=== PATIENT | female | born 1995 | race Caucasian/White ===

== ENCOUNTER → 2019-05-20 15:30 | Observation (INO) ==
[2019-05-20 14:55] LABS: Bilirubin,Urine Negative (Negative); Blood,Urine Negative (Negative); Clarity,Urine Cloudy (Clear); Color,Urine Yellow (Yellow); Glucose,Urine (UA) Normal (Normal); Ketones,Urine Negative (Negative); Leukocyte Esterase,Urine Trace (Negative); Nitrite,Urine Negative (Negative); PH,Urine 6.5 pH Units (5.0-8.0); Protein,Urine Negative (Neg-Trace); Specific Gravity,Urine 1.013 (1.010-1.025); Urobilinogen,Urine Normal (Normal)
[2019-05-20 15:07] LABS: Bacteria,Urine Moderate per hpf (None-Few); Hyaline Casts,Urine None Seen per lpf (None-Few); RBC,Urine 0-3 per hpf (0-3); Squamous Epithelial Cell,Urine Many per lpf (None-Few); WBC,Urine 15-30 per hpf (0-3)
[2019-05-20 15:30] LABS: Amphetamine Screen,Urine Negative ng/mL (Cutoff=1000); Barbiturate Screen,Urine Negative ng/mL (Cutoff=200); Benzodiazepines Screen,Urine Negative ng/mL (Cutoff=200); Cannabinoid Screen,Urine Negative ng/mL (Cutoff = 50); Cocaine Screen,Urine Negative ng/mL (Cutoff= 300); Opiate Screen,Urine Negative ng/mL (Cutoff=300); Phencyclidine Screen,Urine Negative ng/mL (Cutoff=25)
== END | disposition home or self-care (01) ==
LOC: 1NENULAB
PROVIDERS: ADMIT Advanced Practice Midwife; ATTEND Advanced Practice Midwife

== ENCOUNTER 2020-08-30 08:00 | Inpatient (IN) ==
[2020-08-30] MEDS ORDERED: Naloxone 0.4 MG/ML INJ IVP PRN ×2 (08:51→11:32)
[2020-08-30] MEDS ORDERED: Azithromycin 500 MG in 0.9 % Sodium Chloride 250 ML IVPB ONE (08:51)
[2020-08-30] MEDS ORDERED: Famotidine 20 MG/2 ML VIAL IVP PRN (08:51)
[2020-08-30] MEDS ORDERED: Metoclopramide 10 MG/2 ML VIAL IVP PRN ×2 (08:51→15:08)
[2020-08-30] MEDS ORDERED: Ondansetron 4 MG/2 ML VIAL IVP PRN ×2 (08:51→15:08)
[2020-08-30] MEDS ORDERED: CeFAZolin Syr 3,000MG/30 ML 3,000 MG/30 ML SYRINGE IVPB ONE (08:53)
[2020-08-30] MEDS ORDERED: Ringers Solution, Lactated 1,000 ML IVC SCH (09:00)
[2020-08-30 09:18] LABS: Basophils % 0.1 %; Eosinophils # 0.1 K/mcL (0.0-0.6); Eosinophils % 1.6 %; Hematocrit 33.1 % (35.3-44.9); Hemoglobin 10.5 g/dL (11.5-15.4); Immature Granulocytes % 0.9 % (0-4); Lymphocytes # 2.1 K/mcL (0.6-4.6); Mean Corpuscular HGB Conc 31.7 g/dL (31.6-35.5); Mean Corpuscular Hemoglobin 25.5 pg (28.0-33.3); Mean Corpuscular Volume 80.3 fL (83.0-100.0); Monocytes # 0.6 K/mcL (0.0-1.3); Monocytes % 6.4 %; Neutrophils # 6.1 K/mcL (1.6-8.9); Platelet Count 265 K/mcL (140-400); Red Blood Count 4.12 M/mcL (3.82-4.97); Red Cell Distribution Width 14.1 % (11.5-14.5)
[2020-08-30 09:27] LABS: Amphetamine Screen,Urine Negative ng/mL (Cutoff=1000); Barbiturate Screen,Urine Negative ng/mL (Cutoff=200); Benzodiazepines Screen,Urine Negative ng/mL (Cutoff=200); Cannabinoid Screen,Urine Negative ng/mL (Cutoff = 50); Cocaine Screen,Urine Negative ng/mL (Cutoff= 300); Opiate Screen,Urine Negative ng/mL (Cutoff=300); Phencyclidine Screen,Urine Negative ng/mL (Cutoff=25)
[2020-08-30] MEDS ORDERED: *HR* FentaNYL (PF) 100 MCG/2 ML VIAL ONE (10:24)
[2020-08-30] MEDS ORDERED: *HR* Morphine Sulfate/PF 10 MG/10 ML AMPUL ONE (10:24)
[2020-08-30] MEDS ORDERED: Ondansetron 4 MG/2 ML VIAL ONE (10:32)
[2020-08-30] MEDS ORDERED: Acetaminophen IV 1,000 MG/100 ML BAG IVPB ONE (10:35)
[2020-08-30] MEDS ORDERED: Ringers Solution, Lactated 1,000 ML ONE (11:03)
[2020-08-30] MEDS ORDERED: *HR* Meperidine 25 MG/ML SYRINGE IVP PRN (11:32)
[2020-08-30] MEDS ORDERED: *HR* FentaNYL (PF) 100 MCG/2 ML VIAL IVP PRN (11:32)
[2020-08-30] MEDS ORDERED: Ketorolac 30 MG/ML VIAL ONE (12:17)
[2020-08-30] MEDS ORDERED: Sennosides 8.6 MG TABLET PO PRN (15:08)
[2020-08-30] MEDS ORDERED: Oxytocin 20 units/ LR 1000 mL 20 UNIT/1,000 ML BAG IVC SCH (15:08)
[2020-08-30] MEDS ORDERED: *HR* OxyCODONE/APAP 5/325 TABLET PO PRN (15:08)
[2020-08-30] MEDS ORDERED: Simethicone 80 MG TAB.CHEW PO PRN (15:08)
[2020-08-30] MEDS: CeFAZolin 2 GM/120 ML BAG IVPB SCH (17:11)
[2020-08-30] MEDS: Ibuprofen 600 MG TABLET PO PRN (22:44)
[2020-08-30] MEDS: metroNIDAZOLE 500 MG TABLET PO SCH (22:44)
[2020-08-31] MEDS: CeFAZolin 2 GM/120 ML BAG IVPB SCH ×2 (00:55→08:45)
[2020-08-31 05:19] LABS: Basophils % 0.1 %; Eosinophils # 0.2 K/mcL (0.0-0.6); Eosinophils % 1.7 %; Hematocrit 32.7 % (35.3-44.9); Hemoglobin 10.2 g/dL (11.5-15.4); Immature Granulocytes % 0.7 % (0-4); Lymphocytes # 2.1 K/mcL (0.6-4.6); Lymphocytes % 23.3 %; Mean Corpuscular HGB Conc 31.2 g/dL (31.6-35.5); Mean Corpuscular Hemoglobin 25.2 pg (28.0-33.3); Mean Corpuscular Volume 80.9 fL (83.0-100.0); Mean Platelet Volume 10.2 fL (9.4-12.4); Monocytes # 0.7 K/mcL (0.0-1.3); Monocytes % 7.4 %; Platelet Count 254 K/mcL (140-400); Red Blood Count 4.04 M/mcL (3.82-4.97); Red Cell Distribution Width 14.2 % (11.5-14.5); Segmented Neutrophils % 66.8 %
[2020-08-31] MEDS: *HR* Enoxaparin 40 MG/0.4 ML SYRINGE SQ SCH (06:44)
[2020-08-31] MEDS: Prenatal Vit/FA 1 EACH TABLET PO SCH (08:37)
[2020-08-31] MEDS: Ibuprofen 600 MG TABLET PO PRN ×3 (08:42→22:06)
[2020-08-31] MEDS: metroNIDAZOLE 500 MG TABLET PO SCH ×3 (08:44→19:59)
[2020-08-31] MEDS ORDERED: Lanolin 7 G OINT...G. TP PRN (14:32)
[2020-09-01] MEDS: *HR* Enoxaparin 40 MG/0.4 ML SYRINGE SQ SCH (05:14)
[2020-09-01] MEDS: Ibuprofen 600 MG TABLET PO PRN ×2 (05:14→13:13)
[2020-09-01 07:39] VITALS: BP 90/61
[2020-09-01] MEDS: metroNIDAZOLE 500 MG TABLET PO SCH (08:36)
[2020-09-01] MEDS: Prenatal Vit/FA 1 EACH TABLET PO SCH (08:36)
== END 2020-09-01 15:04 | disposition home or self-care (01) | DRG 788 ==
LOC: 1NENULAB 08:06 → 1NENUOBS 14:58
PROVIDERS: ADMIT Obstetrics & Gynecology; ATTEND Obstetrics & Gynecology